=== PATIENT | female | born 1965 | race Hispanic/Latino ===

== ENCOUNTER 2017-03-06 17:09 | Observation (INO) | payer MEDICARE, MEDICAID ==
[2017-03-06 17:09] VITALS: BMI 25.5
--- NOTE | 2017-03-06 18:03 | ED PDOC ---
Arrival/HPI - General Chief Complaint: Back Pain Time Seen by Provider: 03/06/17 17:15 Historian: Patient - History of Present Illness Narrative History of Present Illness (Text): 03/06/17 17:58 This 51 yo female with a pmh chronic neck, and back pain, presents to this ED c/ o neck and back pain for several weeks. Patient stated she just left form Dr. Garcia office. She stated Dr. Garcia had lowered the dose of pain medication she has been prescribed for several months. Patient brought copy of MRI report dated 03-03-17, which shows T6 lower end plate compression fx. , and multiple DJD. Patient denies recent fall or trauma. Patient denies fever, alvarez, sob, cp, abdominal pain, pelvic pain, urinary symptoms, dizziness, paresthesias, weakness , GI/ incontinence, saddle anesthesias, urinary retention, or abnormal gait. Patient asked me to call Dr. Garcia. Time/Duration: Other (see hpi) Context: Home Past Medical History - Provider Review Nursing Documentation Reviewed: Yes - Tetanus Immunization Tetanus Immunization: Unknown - Cardiac Hx Cardiac Disorders: No - Pulmonary Hx Respiratory Disorders: No - Neurological Hx Neurological Disorder: No - HEENT Hx HEENT Disorder: No Hx Blind: No - Renal Hx Renal Disorder: No - Endocrine/Metabolic Hx Endocrine Disorders: No - Hematological/Oncological Hx Blood Disorders: No - Integumentary Hx Dermatological Disorder: No - Musculoskeletal/Rheumatological Hx Musculoskeletal Disorders: Yes (osteo) Hx Back Pain: Yes Hx Falls: Yes Hx Osteoporosis: Yes Hx Spinal Stenosis: (hx of spinal fusion 2004) - Gastrointestinal Hx Gastrointestinal Disorders: No - Genitourinary/Gynecological Hx Genitourinary Disorders: Yes Hx Cervical Cancer: Yes - Psychiatric Hx Psychophysiologic Disorder: No Hx Depression: No Hx Emotional Abuse: No Hx Physical Abuse: No Hx Substance Use: No - Surgical History Hx Cholecystectomy: Yes Hx Hysterectomy: Yes (1995) - Suicidal Assessment Feels Threatened In Home Enviroment: No Family/Social History - Physician Review Nursing Documentation Reviewed: Yes Family/Social History: Other (noncontributory) Smoking Status: Former Smoker Hx Alcohol Use: No Hx Substance Use: No Hx Substance Use Treatment: No Allergies/Home Meds Allergies/Adverse Reactions: Allergies erythromycin base Allergy (Verified 03/06/17 17:30) ANAPHYLAXIS Home Medications: Home Meds Medication Instructions Recorded Confirmed Morphine [Morphine Immediate 15 mg PO Q6 03/06/17 03/06/17 Release Tab] Oxycodone HCl/Acetaminophen 1 tab PO Q6 03/06/17 03/06/17 [Percocet 10-325 mg Tablet] Review of Systems - Review of Systems Constitutional: Normal. absent: Fatigue, Weight Change, Fevers Eyes: Normal ENT: Normal Respiratory: Normal. absent: SOB, Cough Cardiovascular: Normal. absent: Chest Pain, Palpitations Gastrointestinal: Normal. absent: Abdominal Pain, Nausea, Vomiting Genitourinary Female: Normal Musculoskeletal: Back Pain, Neck Pain Skin: Normal. absent: Rash Neurological: Normal. absent: Headache, Dizziness, Focal Weakness, Gait Changes , Speech Changes, Facial Droop, Disequilibrium, Seizure Endocrine: Normal Hemo/Lymphatic: Normal Psychiatric: Normal Physical Exam Vital Signs Temp Pulse Resp BP Pulse Ox 03/06/17 19:24 76 18 142/95 H 99 03/06/17 17:31 98.3 F 104 H 17 162/100 H 96 Temperature: Afebrile Blood Pressure: Normal Pulse: Regular Respiratory Rate: Normal Appearance: Positive for: Well-Appearing, Non-Toxic, Comfortable Pain Distress: None Mental Status: Positive for: Alert and Oriented X 3 - Systems Exam Head: Present: Atraumatic, Normocephalic Pupils: Present: PERRL Extroacular Muscles: Present: EOMI Conjunctiva: Present: Normal Mouth: Present: Moist Mucous Membranes Neck: Present: Normal Range of Motion Respiratory/Chest: Present: Clear to Auscultation, Good Air Exchange. No: Respiratory Distress, Accessory Muscle Use Cardiovascular: Present: Regular Rate and Rhythm, Normal S1, S2. No: Murmurs Abdomen: Present: Normal Bowel Sounds. No: Tenderness, Distention, Peritoneal Signs Back: Present: Normal Inspection. No: CVA Tenderness, Midline Tenderness, Paraspinal Tenderness, Pain with Leg Raise Upper Extremity: Present: Normal Inspection, Normal ROM, NORMAL PULSES, Capillary Refill < 2s. No: Cyanosis, Edema Lower Extremity: Present: Normal Inspection, NORMAL PULSES, Normal ROM, Capillary Refill < 2 s. No: Edema, CALF TENDERNESS Neurological: Present: GCS=15, CN II-XII Intact, Speech Normal, Motor Func Grossly Intact, Normal Sensory Function, Normal Cerebellar Funct, Gait Normal Skin: Present: Warm, Dry, Normal Color. No: Rashes Psychiatric: Present: Alert, Oriented x 3, Normal Insight, Normal Concentration Medical Decision Making ED Course and Treatment: 03/06/17 18:04 Dr. Garcia was paged 03/06/17 18:[address] Garcia regarding patient complain of intractable back pain. He agrees with plan for observation. 03/06/17 18:49 Patient requested to have Steroid medication injected for her back pain. She stated she has this medication in the past for similar symptoms. I reviewed some of the risks involved with the use of Solumedrol with the patient, not only but including AVN, DM, glaucoma, osteoporosis, adrenal insufficiency, infection, HTN, GI perforation, cataracts. Patient understood risk, and she agrees to have Solumedrol IVP since her symptoms have been worsening. Re-evaluation Time: 18:53 Reassessment Condition: Re-examined, Improving,but remains with symptoms - Lab Interpretations Lab Results: 03/06/17 19:10 03/06/17 19:10 Lab Results 03/06/17 19:10: Sodium 139, Potassium 4.2, Chloride 100, Carbon Dioxide 31, Anion Gap 12, BUN 7, Creatinine 0.8, Est GFR ( Amer) > 60, Est GFR (Non- Af Amer) > 60, Random Glucose 102, Calcium 9.6, Total Bilirubin 0.7, AST 25, ALT 29, Alkaline Phosphatase 107, Total Protein 7.1, Albumin 4.4, Globulin 2.7, Albumin/Globulin Ratio 1.6 03/06/17 19:10: WBC 8.3 D, RBC 4.41, Hgb 14.7, Hct 42.6, MCV 96.6, MCH 33.3, MCHC 34.5, RDW 12.6, Plt Count 234, MPV 9.8, Gran % 61.2, Lymph % (Auto) 33.3, Garza % (Auto) 5.0, Eos % (Auto) 0.4 L, Baso % (Auto) 0.1, Gran # 5.09, Lymph # 2.8, Garza # 0.4, Eos # 0.0, Baso # 0.01 - RAD Interpretation Narrative RAD Interpretations (Text): 03/06/17 20:31 CXR: NAD Radiology Orders: 03/06/17 18:48 CHEST TWO VIEWS (PA/LAT) [RAD] Stat - EKG Interpretation Interpreted by ED Physician: Yes (NSR @ 66 bpm. Normal interval) Type: 12 lead EKG Comparison: No previous EKG avail. - Medication Orders Current Medication Orders: Acetaminophen (Tylenol 325mg Tab) 650 mg PO Q6H PRN PRN Reason: Headache Docusate Sodium (Colace) 100 mg PO DAILY [place] Heparin Sodium (Porcine) (Heparin) 5,000 units SC Q12 [place] PRN Reason: Protocol Morphine Sulfate (Morphine) 2 mg IVP Q4H PRN PRN Reason: Pain, moderate (4-7) Morphine Sulfate (Morphine) 4 mg IVP Q4H PRN PRN Reason: Pain, severe (8-10) Nicotine (Nicoderm Cq) 1 patch TD DAILY PRN PRN Reason: URGE TO SMOKE Ondansetron HCl (Zofran Inj) 4 mg IVP Q4H PRN PRN Reason: Nausea/Vomiting Pantoprazole Sodium (Protonix Ec Tab) 40 mg PO 0600 [facility] Discontinued Medications Ketorolac Tromethamine (Toradol) 30 mg IM STAT STA Stop: 03/06/17 18:09 Last Admin: 03/06/17 18:37 Dose: 30 mg MAR Pain Assessment Document 03/06/17 18:37 EQ (Rec: 03/06/17 18:37 EQ [place] [id number]) Pain Reassessment Is this a pain reassessment? No Sleep Is patient sleeping during reassessment? No Presence of Pain Presence of Pain Yes IM Administration Charges Document 03/06/17 18:37 EQ (Rec: 03/06/17 18:37 EQ [place] [id number]) Charges for Administration # of IM Administrations 1 Methylprednisolone (Solu-Medrol) 125 mg IVP STAT STA Stop: 03/06/17 18:48 Last Admin: 03/06/17 19:20 Dose: 125 mg IVP Administration Document 03/06/17 19:20 EQ (Rec: 03/06/17 19:20 EQ [place] [id number]) Charges for Administration # of IVP Administrations 1 Disposition/Present on Arrival - Present on Arrival Any Indicators Present on Arrival: No History of DVT/PE: No History of Uncontrolled Diabetes: No Urinary Catheter: No History of Decub. Ulcer: No History Surgical Site Infection Following: None - Disposition Have Diagnosis and Disposition been Completed?: Yes Diagnosis: Intractable back pain Disposition: HOSPITALIZED Disposition Time: 19:47 Patient Plan: Admission, Observation Patient Problems: Current Active Problems Problem Status Onset Intractable back pain Acute Condition: GOOD
[2017-03-06 19:24] LABS: BASO # 0.01 K/mm3 (0.0-2.0); BASO % 0.1 % (0.0-3.0); EOS % 0.4 % (1.5-5.0); GRAN # 5.09 (1.4-6.5); GRAN % 61.2 % (50.0-68.0); HEMATOCRIT 42.6 % (36.0-48.0); LYMPH # 2.8 (1.2-3.4); LYMPH % 33.3 % (22.0-35.0); MEAN CELL VOLUME 96.6 fl (80.0-105.0); MEAN CORPUSCULAR HEMOGLOBIN 33.3 pg (25.0-35.0); MEAN CORPUSCULAR HGB CONC 34.5 g/dl (31.0-37.0); MEAN PLATELET VOLUME 9.8 fl (7.0-11.0); MONO # 0.4 (0.1-0.6); RED CELL DISTRIBUTION WIDTH 12.6 % (11.5-14.5); WHITE BLOOD COUNT 8.3 10^3/ul (4.5-11.0)
[2017-03-06 19:29] VITALS: RESP 18
[2017-03-06 19:36] LABS: ALB/GLOB RATIO 1.6 (1.1-1.8); ALKALINE PHOSPHATASE 107 U/L (38-126); ALT/SGPT 29 U/L (7-56); AST/SGOT 25 U/L (14-36); BILIRUBIN,TOTAL 0.7 mg/dL (0.2-1.3); BLOOD UREA NITROGEN 7 mg/dL (7-21); CALCIUM 9.6 mg/dL (8.4-10.5); CARBON DIOXIDE 31 mmol/L (21-33); CHLORIDE 100 mmol/L (98-107); GFR AFRICAN-AMERICAN > 60; GLUCOSE,RANDOM 102 mg/dL (70-110); POTASSIUM 4.2 mmol/L (3.6-5.0); SODIUM 139 mmol/L (132-148); TOTAL PROTEIN 7.1 g/dL (5.8-8.3)
[2017-03-06] MEDS ORDERED: Morphine 2 mg/ml ISec IVP PRN (20:15)
[2017-03-06] MEDS: Morphine 4 mg/ml ISec IVP PRN (21:03)
[2017-03-06 21:31] VITALS: O2SAT 100
[2017-03-06 21:46] LABS: INR 1.01 (0.93-1.08)
[2017-03-06 21:47] LABS: PARTIAL THROMBOPLASTIN TIME 31.4 Seconds (25.1-36.5)
--- NOTE | 2017-03-07 01:01 | CP.PCM.HP ---
History of Present Illness - History of Present Illness History of Present Illness: Dr. Garcia Service 51 F with a PMHx of chronic pain syndrome (2004), spinal stenosis, lumbar fusion , substance abuse and cervical ca s/p hysterectomy present to [place] [facility] with complaints of intractable diffuse back pain. Pt describes her pain as diffuse b/ l vertebral back pain with pain radiating down b/l lower extremities. Pt claims intensity of pain to be a 8/10 and characterized as sharp pain that is exacerbated by shifting positions. Pt states she was visiting her PMD today and her pain management regimen was no longer controlling her pain symptoms. Pt recently had imaging done on 03/03/17 significant for T6 end plate compression fx. Pt noted that she has recently been over exerting herself in preparation [place] and ent[place] lifting and moving heavy objects. She denied any recent trauma or falls. Pt denied fever, chills, lightheadedness, headaches, chest pains, sob, abdominal pains, n/v/d/c, saddle paresthesisas, urinary or fecal incontinence or urinary symptoms. PMHx: chronic pain syndrome, spinal stenosis, lumbar fusion, substance abuse and cervical ca s/p hysterectomy PSHx: Hysterectomy, Cholecystectomy, spinal fusion Famhx: Noncontributory SHx: 1/2 PPD x 40 years, denied etoh, denied illicit drugs, lives alone in [place] in process of moving, on permanent disability Meds: Oxycodone 10 mg q6prn, Morphine 15mg Q6 prn Allergies: Erythromycin - anaphylaxis Present on Admission - Present on Admission Any Indicators Present on Admission: No Review of Systems - Review of Systems Review of Systems: As per HPI otherwise negative Past Patient History - Tetanus Immunizations Tetanus Immunization: Unknown - Past Social History Smoking Status: Heavy Smoker > 10 Cigarettes Daily - CARDIAC Hx Cardiac Disorders: No - PULMONARY Hx Chronic Obstructive Pulmonary Disease (COPD): No (Denies) - NEUROLOGICAL Hx 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) - HEENT Hx HEENT Problems: No Hx Blind: No - RENAL Hx Chronic Kidney Disease: No - ENDOCRINE/METABOLIC Hx Endocrine Disorders: No - HEMATOLOGICAL/ONCOLOGICAL Hx Cancer: Yes (Cervical cancer) - INTEGUMENTARY Hx Dermatological Problems: No - MUSCULOSKELETAL/RHEUMATOLOGICAL Hx Falls: No - GASTROINTESTINAL Hx Gastrointestinal Disorders: No - GENITOURINARY/GYNECOLOGICAL Hx Genitourinary Disorders: Yes Hx Cervical Cancer: Yes - PSYCHIATRIC Hx Psychophysiologic Disorder: Yes (Substance abuse, overdose 2011, smoker) Hx Depression: Yes - SURGICAL HISTORY Hx Surgeries: Yes (Spinal fusion 2004) Hx Cholecystectomy: Yes Hx Hysterectomy: Yes (1995) Meds Allergies/Adverse Reactions: Allergies Allergy/AdvReac Type Severity Reaction Status Date / Time erythromycin base Allergy ANAPHYLAXIS Verified 03/06/17 17:30 Physical Exam - Constitutional Appears: No Acute Distress - Head Exam Head Exam: ATRAUMATIC, NORMAL INSPECTION, NORMOCEPHALIC - Eye Exam Eye Exam: EOMI, Normal appearance, PERRL Pupil Exam: NORMAL ACCOMODATION, PERRL - ENT Exam ENT Exam: Mucous Membranes Moist, Normal Exam - Neck Exam Neck exam: Positive for: Normal Inspection, Tenderness Additional comments: point tenderness to cervical column - Respiratory Exam Respiratory Exam: Clear to Auscultation Bilateral, NORMAL BREATHING PATTERN - Cardiovascular Exam Cardiovascular Exam: REGULAR RHYTHM, +S1, +S2 - GI/Abdominal Exam GI & Abdominal Exam: Normal Bowel Sounds, Soft. absent: Tenderness - Extremities Exam Extremities exam: Positive for: normal inspection, pedal pulses present - Back Exam Back exam: paraspinal tenderness, tenderness, vertebral tenderness - Neurological Exam Neurological exam: Alert, CN II-XII Intact, Oriented x3, Reflexes Normal - Psychiatric Exam Psychiatric exam: Normal Affect, Normal Mood - Skin Skin Exam: Dry, Intact, Normal Color, Warm Results - Vital Signs Recent Vital Signs: Last Vital Signs Temp 97.8 F 03/06/17 22:59 Pulse 80 03/06/17 22:59 Resp 18 03/06/17 22:59 BP 153/98 H 03/06/17 22:59 Pulse Ox 100 03/06/17 21:29 - Labs Result Diagrams: 03/06/17 19:10 03/06/17 19:10 Assessment & Plan - Assessment and Plan (Free Text) Assessment: 51 F with a PMHx of chronic pain syndrome (2004), spinal stenosis, lumbar fusion , substance abuse and cervical ca s/p hysterectomy present to the [facility] with complaints of intractable diffuse back pain. Intractable Back Pain - hx spinal fusion - Outpt MRI reviewed, please refer to report for full details - solumedrol in ED - morphine prn - zofran - Pain management consulted, Dr. Jarrett - fu morning labs - PT eval HTN - denied hx, no home meds, asymptomatic - likely 2/2 pain - continue to monitor with proper pain management - consider adding anti-htn if remains elevated Tobacco Abuse - counselled pt and encouraged cessation - nicotine patch offered Chronic pain syndrome - Hx of Morphine ER 160mg Q12, Oxycodone 30mg Q6 GI/DVT ppx: heparin, protonix reviewed and discussed with attending
[2017-03-07] MEDS: Morphine 4 mg/ml ISec IVP PRN ×3 (01:15→10:26)
[2017-03-07] MEDS ORDERED: Pantoprazole 40 mg EC Tab PO SCH (06:00)
[2017-03-07 07:16] LABS: GRAN # 6.73 (1.4-6.5); GRAN % 82.3 % (50.0-68.0); HEMATOCRIT 42.7 % (36.0-48.0); LYMPH # 1.3 (1.2-3.4); MEAN CELL VOLUME 96.6 fl (80.0-105.0); MEAN CORPUSCULAR HEMOGLOBIN 32.8 pg (25.0-35.0); MEAN PLATELET VOLUME 10.2 fl (7.0-11.0); MONO # 0.1 (0.1-0.6); MONO % 1.7 % (1.0-6.0); RED CELL DISTRIBUTION WIDTH 12.6 % (11.5-14.5); WHITE BLOOD COUNT 8.2 10^3/ul (4.5-11.0)
[2017-03-07 07:30] LABS: ALB/GLOB RATIO 1.5 (1.1-1.8); ALKALINE PHOSPHATASE 105 U/L (38-126); ALT/SGPT 25 U/L (7-56); AST/SGOT 19 U/L (14-36); BILIRUBIN,TOTAL 0.6 mg/dL (0.2-1.3); BLOOD UREA NITROGEN 15 mg/dL (7-21); CALCIUM 9.9 mg/dL (8.4-10.5); CARBON DIOXIDE 28 mmol/L (21-33); CHLORIDE 103 mmol/L (98-107); GFR AFRICAN-AMERICAN > 60; GLUCOSE,RANDOM 176 mg/dL (70-110); MAGNESIUM 1.9 mg/dL (1.7-2.2); PHOSPHOROUS 3.5 mg/dL (2.5-4.5); POTASSIUM 4.5 mmol/L (3.6-5.0); SODIUM 140 mmol/L (132-148); TOTAL PROTEIN 6.8 g/dL (5.8-8.3)
--- NOTE | 2017-03-07 08:49 | CARD ---
APPROVED REPORT EKG Measurement Heart [id number] <Conclusion> Normal sinus rhythm NSSTW changes The P wave axis has shifted.
--- NOTE | 2017-03-07 08:55 | RAD ---
HISTORY: COMPARISON: 11/04/2011. TECHNIQUE: Chest PA and lateral FINDINGS: LINES AND TUBES: None. LUNG AND PLEURA: The lungs are well inflated and clear. HEART AND MEDIASTINUM: The heart is not enlarged. The hilar and mediastinal contours are within normal limits. SKELETAL STRUCTURES: The bony structures are within normal limits for the patient's age. VISUALIZED UPPER ABDOMEN: Normal. OTHER FINDINGS: None. IMPRESSION: No active pulmonary disease.
[2017-03-07 09:13] VITALS: BP 110/53; PULSE 92; TEMP 98.5
--- NOTE | 2017-03-07 15:42 | CP.PCM.DIS ---
Provider - Provider Date of Admission: 03/06/17 19:46 Attending physician: Nicolas Agarwal MD Primary care physician: Werner Garcia MD Consults: PMR Dr. Jarrett Time Spent in preparation of Discharge (in minutes): 45 Diagnosis - Discharge Diagnosis (1) Intractable back pain Status: Acute Hospital Course - Lab Results Lab Results: Most Recent Lab Values WBC 8.2 10^3/ul (4.5-11.0) 03/07/17 06:50 RBC 4.42 10^6/uL (3.5-6.1) 03/07/17 06:50 Hgb 14.5 g/dL (12.0-16.0) 03/07/17 06:50 Hct 42.7 % (36.0-48.0) 03/07/17 06:50 MCV 96.6 fl (80.0-105.0) 03/07/17 06:50 MCH 32.8 pg (25.0-35.0) 03/07/17 06:50 MCHC 34.0 g/dl (31.0-37.0) 03/07/17 06:50 RDW 12.6 % (11.5-14.5) 03/07/17 06:50 Plt Count 252 10^3/uL (120.0-450.0) 03/07/17 06:50 MPV 10.2 fl (7.0-11.0) 03/07/17 06:50 Gran % 82.3 % (50.0-68.0) H 03/07/17 06:50 Lymph % (Auto) 16.0 % (22.0-35.0) L 03/07/17 06:50 [place] % (Auto) 1.7 % (1.0-6.0) 03/07/17 06:50 Eos % (Auto) 0.0 % (1.5-5.0) L 03/07/17 06:50 Baso % (Auto) 0.0 % (0.0-3.0) 03/07/17 06:50 Gran # 6.73 (1.4-6.5) H 03/07/17 06:50 Lymph # 1.3 (1.2-3.4) 03/07/17 06:50 [place] # 0.1 (0.1-0.6) 03/07/17 06:50 Eos # 0.0 (0.0-0.7) 03/07/17 06:50 Baso # 0.00 K/mm3 (0.0-2.0) 03/07/17 06:50 ESR 17 mm/hr (0.0-20.0) 03/07/17 06:50 PT 11.0 SECONDS (9.4-12.5) 03/06/17 19:10 INR 1.01 (0.93-1.08) 03/06/17 19:10 APTT 31.4 Seconds (25.1-36.5) 03/06/17 19:10 Sodium 140 mmol/L (132-148) 03/07/17 06:50 Potassium 4.5 mmol/L (3.6-5.0) 03/07/17 06:50 Chloride 103 mmol/L (98-107) 03/07/17 06:50 Carbon Dioxide 28 mmol/L (21-33) 03/07/17 06:50 Anion Gap 14 (10-20) 03/07/17 06:50 BUN 15 mg/dL (7-21) 03/07/17 06:50 Creatinine 0.8 mg/dL (0.7-1.2) 03/07/17 06:50 Est GFR ( Amer) > 60 03/07/17 06:50 Est GFR (Non-Af Amer) > 60 03/07/17 06:50 Random Glucose 176 mg/dL (70-110) H 03/07/17 06:50 Calcium 9.9 mg/dL (8.4-10.5) 03/07/17 06:50 Phosphorus 3.5 mg/dL (2.5-4.5) 03/07/17 06:50 Magnesium 1.9 mg/dL (1.7-2.2) 03/07/17 06:50 Total Bilirubin 0.6 mg/dL (0.2-1.3) 03/07/17 06:50 AST 19 U/L (14-36) 03/07/17 06:50 ALT 25 U/L (7-56) 03/07/17 06:50 Alkaline Phosphatase 105 U/L (38-126) 03/07/17 06:50 C-React Prot High Sens 3.32 mg/L (1.00-3.00) H 03/07/17 06:50 Total Protein 6.8 g/dL (5.8-8.3) 03/07/17 06:50 Albumin 4.1 g/dL (3.0-4.8) 03/07/17 06:50 Globulin 2.8 gm/dL 03/07/17 06:50 Albumin/Globulin Ratio 1.5 (1.1-1.8) 03/07/17 06:50 - Hospital Course Hospital Course: Patient left AMA. Please refer to HPI for history. Discharge Exam - Head Exam Head Exam: ATRAUMATIC, NORMAL INSPECTION, NORMOCEPHALIC - Eye Exam Eye Exam: EOMI, Normal appearance. absent: Nystagmus, Scleral icterus - ENT Exam ENT Exam: Mucous Membranes Moist, Normal Exam. absent: Mucous Membranes Dry - Respiratory Exam Respiratory Exam: NORMAL BREATHING PATTERN, UNREMARKABLE. absent: Decreased Breath Sounds, Rales, Rhonchi, Wheezes, Stridor - Cardiovascular Exam Cardiovascular Exam: REGULAR RHYTHM, +S1, +S2. absent: Tachycardia, Clicks, Gallop, Systolic Murmur - GI/Abdominal Exam GI & Abdominal Exam: Normal Bowel Sounds, Soft, Unremarkable. absent: Organomegaly, Pulsatile Mass, Rigid, Tenderness - Extremities Exam Extremities exam: joint swelling - Back Exam Back exam: paraspinal tenderness, vertebral tenderness. absent: CVA tenderness (L), FULL ROM, NORMAL INSPECTION, rash noted - Neurological Exam Neurological exam: Alert, CN II-XII Intact, Oriented x3 - Psychiatric Exam Psychiatric exam: Depressed, Normal Affect, Normal Mood - Skin Skin Exam: Intact, Normal Color, Warm Discharge Plan - Follow Up Plan Condition: GOOD Disposition: AGAINST MEDICAL ADVICE Patient education suggested?: Yes Referrals: Werner Garcia MD [Primary Care Provider] - Follow up with primary
== END 2017-03-07 14:03 | disposition left against medical advice (07) ==
LOC: ED 17:09 → ERH 19:46 → 3RSO 21:43
PROVIDERS: ADMIT Internal Medicine; ATTEND Internal Medicine
DX: M54.9 Dorsalgia, unspecified (principal); G89.4 Chronic pain syndrome; M48.061 Spinal stenosis, lumbar region without neurogenic claudication; I10 Essential (primary) hypertension; Z72.0 Tobacco use; Z85.41 Personal history of malignant neoplasm of cervix uteri; Z98.1 Arthrodesis status; Z90.710 Acquired absence of both cervix and uterus
CPT/HCPCS: 36415; 71020; 80053; 83735; 84100; 85025; 85610; 85651; 85730; 86140; 93005; 96372; 96374; 97116; 97162; 99284; G0378; G8978; G8979; G8980; J1644; J1885; J2270; J2930